=== PATIENT | male | born 1980 | race Hispanic/Latino ===

== ENCOUNTER 2021-07-11 21:23 | Emergency (ER) | payer OTHER ==
[2021-07-11] MEDS ORDERED: EPINEPHrine 1 MG/ML AMP ONE (21:35)
[2021-07-11] MEDS ORDERED: diphenhydrAMINE 25 MG CAP ONE (22:25)
[2021-07-11] MEDS ORDERED: predniSONE 20 MG TAB ONE (22:25)
== END 2021-07-11 22:55 | disposition home or self-care (01) ==
LOC: CSHERS 21:23
DX: T63.481A Toxic effect of venom of other arthropod, accidental (unintentional), initial encounter (principal)
CPT/HCPCS: 96372; 99283; J0171; J7512

== ENCOUNTER 2022-02-11 23:27 | Emergency (ER) | payer BC ==
[2022-02-12] MEDS ORDERED: Cefepime 2 GM VIAL ONE (00:09)
[2022-02-12] MEDS ORDERED: Ketorolac Tromethamine 30 MG/ML VIAL ONE (00:10)
[2022-02-12 00:57] LABS: #Basophils 0.1 10x3/uL (0.0-0.2); #Eosinphils 0.4 10x3/uL (0.0-0.5); #Monocytes 1.6 10x3/uL (0.0-1.1); #Neutrophils 8.5 10x3/uL (1.5-8.4); %Basophils 0.8 % (0.0-2.0); %Lymphocytes 14.2 % (18.0-47.0); %Monocytes 12.9 % (0.0-10.0); %Neutrophils 68.8 % (40.0-75.0); Hemoglobin 14.1 g/dL (13.5-17.5); Mean Corpuscular HGB CONC 34.7 g/dL (32.0-36.0); Mean Corpuscular Hemoglobin 29.6 pg (27.0-33.0); Mean Corpuscular Volume 85.1 fl (81.2-95.1); Mean Platelet Volume 10.6 fl (7.4-10.4); Platelet Count 307 10x3/uL (150-450); Red Blood Cell (RBC) Count 4.77 10x6/uL (4.32-5.72); White Blood Cell (WBC) Count 12.4 10x3/uL (3.5-10.5)
[2022-02-12 00:58] LABS: ALT (SGPT) 25 U/L (8-55); AST (SGOT) 17 U/L (5-34); Albumin 4.5 g/dL (3.5-5.0); Alkaline Phosphatase 75 U/L (40-110); Anion Gap 17 mmol/L (10-20); BUN (Urea Nitrogen) 25 mg/dL (8.9-20.6); Bilirubin, Total 0.4 mg/dL (0.2-1.2); Calc. Creatinine Clearance 0 mL/min (70-130); Calcium 9.9 mg/dL (7.8-10.44); Carbon Dioxide 23 mmol/L (22-29); Chloride 101 mmol/L (98-107); Globulin 3.2 g/dL (2.4-3.5); Glucose 116 mg/dL (70-105); Potassium 3.7 mmol/L (3.5-5.1); Protein, Total 7.7 g/dL (6.0-8.3); Sodium 137 mmol/L (136-145)
[2022-02-12] MEDS ORDERED: Sulfameth/Trimethoprim DS 800-160mg TAB ONE (04:14)
== END 2022-02-12 04:16 | disposition home or self-care (01) ==
LOC: CSHERS 23:27
DX: L03.211 Cellulitis of face (principal); H60.12 Cellulitis of left external ear; F17.210 Nicotine dependence, cigarettes, uncomplicated
CPT/HCPCS: 70487; 80053; 83605; 85025; 87040; 96365; 96366; 96367; 96375; J0692; J1885; J3370

== ENCOUNTER 2022-08-20 10:04 | Outpatient (CLI) | payer BC ==
[2022-08-20 13:17] LABS: Hemoglobin 13.5 g/dL (13.5-17.5); Mean Corpuscular HGB CONC 33.8 g/dL (32.0-36.0); Mean Corpuscular Hemoglobin 29.3 pg (27.0-33.0); Mean Platelet Volume 10.2 fl (7.4-10.4); Platelet Count 400 10x3/uL (150-450); White Blood Cell (WBC) Count 9.2 10x3/uL (3.5-10.5)
[2022-08-20 13:24] LABS: Anion Gap 14 mmol/L (10-20); BUN (Urea Nitrogen) 11 mg/dL (8.9-20.6); Calc. Creatinine Clearance 0 mL/min (70-130); Calcium 9.2 mg/dL (7.8-10.44); Carbon Dioxide 22 mmol/L (22-29); Chloride 106 mmol/L (98-107); Estimated GFR 115; Glucose 89 mg/dL (70-105); Potassium 4.7 mmol/L (3.5-5.1); Sodium 137 mmol/L (136-145)
== END 2022-08-20 10:05 | disposition home or self-care (01) ==
LOC: CSHLAB 10:04
PROVIDERS: ATTEND Orthopaedic Surgery
DX: Z01.818 Encounter for other preprocedural examination (principal); S46.212A Strain of muscle, fascia and tendon of other parts of biceps, left arm, initial encounter
CPT/HCPCS: 80048; 85027; 93005; 93010

== ENCOUNTER 2022-08-22 11:38 | Day surgery (SDC) | payer BC ==
[2022-08-21 10:18] VITALS: BMI 29.1
[~2022-08-22 11:38] MED LIST: Bupivacaine PF 0.5% 30 ML VIAL ONE; EPINEPHrine 1 MG/ML AMP ONE
[2022-08-22] MEDS ORDERED: Ketorolac Tromethamine 30 MG/ML VIAL ONE (12:41)
[2022-08-22] MEDS ORDERED: PROPOFOL 20 ML ONE ×3 (13:02→15:12)
[2022-08-22] MEDS ORDERED: Fentanyl 100 MCG/2 ML VIAL ONE ×3 (13:03→15:18)
[2022-08-22] MEDS ORDERED: Ondansetron PF 4 MG/2 ML Vial ONE (13:03)
[2022-08-22] MEDS ORDERED: Midazolam HCl 2 mg/2 ml Vial ONE ×2 (13:03→15:12)
[2022-08-22] MEDS ORDERED: Lidocaine 1% PF 5 ML VIAL ONE (13:03)
[2022-08-22] MEDS ORDERED: Dexamethasone 20 MG/5 ML VIAL ONE (13:03)
[2022-08-22] MEDS ORDERED: CEFAZOLIN 2 GM VIAL ONE (13:20)
[2022-08-22] MEDS ORDERED: Glycopyrrolate 0.2 MG/ML 5 ML SYRINGE ONE (13:49)
[2022-08-22] MEDS ORDERED: PHENYLEPHRINE-NS 100 MCG/ML 10 ML SYRINGE ONE (14:52)
== END 2022-08-22 16:20 | disposition home or self-care (01) ==
LOC: CSHSDC 11:38
PROVIDERS: ATTEND Orthopaedic Surgery
PROC: 0LQ40ZZ Repair Left Upper Arm Tendon, Open Approach (ICD-10-PCS; principal; 2022-08-22)
DX: S46.212A Strain of muscle, fascia and tendon of other parts of biceps, left arm, initial encounter (principal); F32.A Depression, unspecified; Z79.899 Other long term (current) drug therapy; X58.XXXA Exposure to other specified factors, initial encounter
CPT/HCPCS: C1713; J0171; J1100; J1885; J2250; J2405; J2704; J3010; S0020